=== PATIENT | male | born 1960 | race Caucasian/White ===

== ENCOUNTER 2020-10-27 03:12 | Outpatient (CLI) | payer BC, SELFPAY ==
--- NOTE | 2020-10-27 | DI.RAD_ITS ---
Exam(s) XR CERVICAL SPINE COMP 4-5V EXAM: XR CERVICAL SPINE COMP 4-5V CLINICAL HISTORY: PARESTHESIAS BILAT HANDS,ASSESS FOR SPONDYLOSIS/CERVICAL RIBS. TECHNIQUE: 2D digital imaging was performed. COMPARISON: No exams were available for comparison FINDINGS: BONES: No fracture or destructive lesion. Vertebral bodies are unremarkable. DISKS: There is mild narrowing of the C 2 3 disc space. There is moderate narrowing of the C3-4 thro ugh C5-6 disc spaces and moderate to severe narrowing of the C 6 7 disc space. There are uncovertebr al osteophytes and facet osteophytes which project into the neural foramen causing narrowing greater on the left side from C3-4 through C6-7. ALIGNMENT: Cervical spinal alignment is within normal limits. The odontoid and atlantoaxial articulat ions are normal. SOFT TISSUE: Normal. The lung apices are clear. IMPRESSION: Degenerative disc changes and facet degenerative changes cause neural foraminal narrowing, greater on the left. DATA REPOSITORY: RADIATION DOSE DELIVERED:
== END 2020-10-27 03:32 ==
PROVIDERS: Visit Provider Chiropractor Orthopedic
DX: M47.812 Spondylosis without myelopathy or radiculopathy, cervical region (principal); M48.02 Spinal stenosis, cervical region; R20.2 Paresthesia of skin
CPT/HCPCS: 72050